=== PATIENT | male | born 2000 | race Caucasian/White ===

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

== ENCOUNTER 2020-07-15 09:17 | Emergency (ER) | payer MEDICAID ==
[2020-07-15 11:24] LABS: Bacteria,Urine 1+ /HPF (Negative); Bilirubin,Urine NEG (Negative); Blood,Urine NEG (Negative); Color,Urine Yellow (Yellow); Mucus,Urine FEW /HPF; Protein,Urine <15 mg/dL mg/dL (Negative); Urobilinogen,Urine < 2.0 mg/dL (<2.0)
--- NOTE | 2020-07-15 12:02 | Emergency Department Report ---
ED Male HPI - General Chief complaint: Urogenital-Male Stated complaint: GROIN PAIN Time Seen by Provider: 07/15/20 10:24 Source: patient Mode of arrival: Ambulatory Limitations: No Limitations - History of Present Illness Initial comments: Patient is a 20-year-old male presents emergency room with complaints of right- sided groin pain that began yesterday. He denies any fall or injury. He denies any heavy lifting. He denies stretching incorrectly or doing anything differently. He denies any dysuria, hematuria, urinary retention. He denies an y penile discharge, pain or swelling in the testicles, abdominal pain, nausea, vomiting, diarrhea, fever. He has a past medical history of ADHD. No allergies to medications. - Related Data Previous Rx's Medication Instructions Recorded Last Taken Type Ibuprofen [Motrin 800 MG tab] 800 mg PO Q8HR PRN #21 tablet 06/15/19 Unknown Rx Sulfamethoxazole/Trimethoprim 1 each PO BID 10 Days #20 tablet 06/15/19 Unknown Rx [Bactrim DS TAB] Ibuprofen [Motrin 400 MG tab] 400 mg PO Q8H PRN #14 tablet 06/29/19 Unknown Rx Doxycycline Hyclate [Doxycycline 100 mg PO BID 7 Days #14 tab 07/15/20 Unknown Rx Hyclate TAB] Ondansetron [Zofran Odt] 4 mg PO Q8HR PRN #10 tab.rapdis 07/15/20 Unknown Rx Allergies Allergy/AdvReac Type Severity Reaction Status Date / Time No Known Allergies Allergy Verified 07/15/20 09:18 ED Review of Systems ROS: Stated complaint: GROIN PAIN Other details as noted in HPI Comment: All other systems reviewed and negative ED Past Medical Hx - Past Medical History Hx Psychiatric Treatment: Yes (OCD,ADHD,MID) - Social History Smoking Status: Current Every Day Smoker Substance Use Type: None - Medications Home Medications: Home Medications Medication Instructions Recorded Confirmed Last Taken Type Ibuprofen [Motrin 800 MG tab] 800 mg PO Q8HR PRN #21 tablet 06/15/19 Unknown Rx Sulfamethoxazole/Trimethoprim 1 each PO BID 10 Days #20 tablet 06/15/19 Unknown Rx [Bactrim DS TAB] Ibuprofen [Motrin 400 MG tab] 400 mg PO Q8H PRN #14 tablet 06/29/19 Unknown Rx Doxycycline Hyclate [Doxycycline 100 mg PO BID 7 Days #14 tab 07/15/20 Unknown Rx Hyclate TAB] Ondansetron [Zofran Odt] 4 mg PO Q8HR PRN #10 tab.rapdis 07/15/20 Unknown Rx ED Physical Exam - General Limitations: No Limitations General appearance: alert, in no apparent distress - Head Head exam: Present: atraumatic, normocephalic - Eye Eye exam: Present: normal appearance - ENT ENT exam: Present: mucous membranes moist - Respiratory Respiratory exam: Present: normal lung sounds bilaterally. Absent: respiratory distress, wheezes, rales, rhonchi, stridor, chest wall tenderness, accessory muscle use, decreased breath sounds, prolonged expiratory - Cardiovascular Cardiovascular Exam: Present: regular rate, normal rhythm, normal heart sounds. Absent: systolic murmur, diastolic murmur, rubs, gallop - GI/Abdominal GI/Abdominal exam: Present: soft, normal bowel sounds. Absent: distended, tenderness, guarding, rebound, rigid - exam: Present: other (aviation electronic warfare operator: Winnie, tech, no ttp of the testicles bilaterally, no scrotal edema, no tenderness to palpation or edema of the epididymal appendages bilaterally, normal cremasteric reflex, no signficant inguinal hernia, no palpable mass, normal testicular lie) - Back Exam Back exam: Absent: CVA tenderness (R), CVA tenderness (L) - Neurological Exam Neurological exam: Present: alert, oriented X3 - Psychiatric Psychiatric exam: Present: normal affect, normal mood - Skin Skin exam: Present: warm, dry, intact ED Course Vital Signs 07/15/20 07/15/20 09:21 13:36 Temperature 98.0 F 97.5 F L Pulse Rate 63 79 Respiratory 18 19 Rate Blood Pressure 104/68 Blood Pressure 128/64 [Left] O2 Sat by Pulse 98 100 Oximetry ED Medical Decision Making - Lab Data Lab Results 07/15/20 Range/Units Unknown Urine Color Yellow (Yellow) Urine Turbidity Hazy (Clear) Urine pH 8.0 H (5.0-7.0) Ur Specific [place] 1.015 (1.003-1.030) Urine Protein <15 mg/dl (Negative) mg/dL Urine Glucose (UA) Neg (Negative) mg/dL Urine Ketones Neg (Negative) mg/dL Urine Blood Neg (Negative) Urine Nitrite Neg (Negative) Urine Bilirubin Neg (Negative) Urine Urobilinogen < 2.0 (<2.0) mg/dL Ur Leukocyte Esterase Sm (Negative) Urine WBC (Auto) 22.0 H (0.0-6.0) /HPF Urine RBC (Auto) 4.0 (0.0-6.0) /HPF Urine Bacteria (Auto) 1+ (Negative) /HPF Urine Mucus Few /HPF - Radiology Data Radiology results: report reviewed Ordering Physician: ZEV PAGE Date of Service: 07/15/20 Procedure(s): US testicular doppler comp Accession Number(s): [id number] cc: ZEV PAGE TESTICULAR ULTRASOUND HISTORY: Right inguinal pain. FINDINGS: Right testicle measures 4.2 x 1.9 x 3 cm. Left testicle measures 4.1 x 1.9 x 2.6 cm. Both testicles demonstrate appropriate flow. Negative for testicular mass. Tiny hydroceles are present bilaterally. IMPRESSION: Tiny bilateral hydroceles. Signer Name: Terrance Borrero MD Signed: 07/15/2020 12:04 PM Workstation Name: [id number] Transcribed By: ES Dictated By: Terrance Borrero MD Electronically Authenticated By: Terrance Borrero MD Signed Date/Time: 07/15/20 120 DD/ 03 TD/TT: - Medical Decision Making Patient is a 20-year-old male presents emergency room with complaints of right- sided groin pain that began yesterday. He denies any fall or injury. He denies any heavy lifting. He denies stretching incorrectly or doing anything differently. He denies any dysuria, hematuria, urinary retention. He denies any penile discharge, pain or swelling in the testicles, abdominal pain, nausea, vomiting, diarrhea, fever. He has a past medical history of ADHD. No allergies to medications. vitals are normal. on exam: aviation electronic warfare operator: Winnie, tech, no ttp of the testicles bilaterally, no scrotal edema, no tenderness to palpation or edema of the epididymal appendages bilaterally, normal cremasteric reflex, no signficant inguinal hernia, no palpable mass, normal testicular lie, no abdominal tenderness on exam, no guarding, urine, no rigidity, normal bowel sounds. UA with small amount of white blood cells and small leukocyte esterase. US scrotal: Tiny bilateral hydroceles. Given that patient is a young male with groin pain and bacteria, likely this is an STD. G/C swab sent. Patient would like prophylactic treatment for G/C. Patient given ceftriaxone and azithromycin while in the ED. Patient had an episode of vomiting after he took the azithromycin on an empty stomach, otherwise patient has had no vomiting. Patient given prescription for doxycycline and Zofran. Advised patient to take medication with food. Advised patient Please follow-up with the clinic without department to have a full STD panel. Please have any partner tested and treated as well. 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 Avoid sexual intercourse. Return to emergency room for any new or worsening symptoms. - Differential Diagnosis STD, hernia, nodule, epididymitis, orchitis, inguinal sprain Critical care attestation.: If time is entered above; I have spent that time in minutes in the direct care of this critically ill patient, excluding procedure time. ED Disposition Clinical Impression: Bacteria in urine, Concern about STD in male without diagnosis Groin pain Qualifiers: Laterality: right Qualified Code(s): R10.31 - Right lower quadrant pain Hydrocele Qualifiers: Hydrocele type: unspecified Qualified Code(s): N43.3 - Hydrocele, unspecified Disposition: DC- TO HOME OR SELFCARE Is pt being admited?: No Does the pt Need Aspirin: No Condition: Stable Instructions: Hydrocele, Adult, Gonorrhea Test, Chlamydia Test Additional Instructions: Please follow-up with the clinic without department to have a full STD panel. Please have any partner tested and treated as well. 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 Avoid sexual intercourse. Return to emergency room for any new or worsening symptoms. Prescriptions: Doxycycline Hyclate [Doxycycline Hyclate TAB] 100 mg PO BID 7 Days #14 tab Ondansetron [Zofran Odt] 4 mg PO Q8HR PRN #10 tab.rapdis PRN Reason: Nausea And Vomiting Referrals: PRIMARY CARE, [Primary Care Provider] - 2-3 Days [facility] [Outside] - 2-3 Days Time of Disposition: 12:18 Print Language: HONDURAN
--- NOTE | 2020-07-15 12:09 | Ultrasound Report ---
TESTICULAR ULTRASOUND HISTORY: Right inguinal pain. FINDINGS: Right testicle measures 4.2 x 1.9 x 3 cm. Left testicle measures 4.1 x 1.9 x 2.6 cm. Both testicles d emonstrate appropriate flow. Negative for testicular mass. Tiny hydroceles are present bilaterally. IMPRESSION: Tiny bilateral hydroceles. Signer Name: Terrance Borrero MD Signed: 07/15/2020 12:04 PM Workstation Name: [id number]
[2020-07-15] MEDS ORDERED: AZITHROMYCIN 250 MG TAB PO ONE (12:17)
[2020-07-15] MEDS ORDERED: LIDOCAINE-MPF (1%) 10 MG/1 ML VIAL 5 ML INFILTRATI ONE (12:17)
[2020-07-15 13:38] VITALS: BP 128/64
== END 2020-07-15 13:37 | disposition home or self-care (01) ==
LOC: ED 09:17
DX: R82.71 Bacteriuria (principal); R10.31 Right lower quadrant pain; N43.3 Hydrocele, unspecified; Z71.1 Person with feared health complaint in whom no diagnosis is made; F90.9 Attention-deficit hyperactivity disorder, unspecified type; F17.200 Nicotine dependence, unspecified, uncomplicated; Z79.899 Other long term (current) drug therapy
CPT/HCPCS: 81001; 87086; 87591; 93975; 96372; 99284; J0696

== ENCOUNTER 2021-05-27 19:45 | Emergency (ER) | payer MEDICAID ==
[2021-05-27 19:55] VITALS: BP 111/66
[2021-05-27] MEDS ORDERED: SODIUM CHLORIDE 0.9% 1000 ML 1,000 ML IV ONE (21:43)
--- NOTE | 2021-05-27 21:52 | Emergency Department Report ---
ED General Adult HPI - General Chief complaint: Abdominal Pain Stated complaint: ABDOMINAL PAIN Time Seen by Provider: 05/27/21 21:31 Source: patient, EMS Mode of arrival: Stretcher Limitations: No Limitations - History of Present Illness Initial comments: 21-year-old male patient presents to the emergency department with complaints of abdominal pain, nausea, vomiting, and myalgias starting today. Pain is localized to the epigastric area. No known sick contacts. No current steroid or antibiotic use. No recent travel. Patient admits to drinking cognac prior to onset of his symptoms. No history of prior abdominal surgeries. Denies fever, chills, hematemesis, diarrhea, rectal bleeding, chest pain, shortness of breath, syncope. Denies all other complaints at this time. Severity scale (0 -10): 8 - Related Data Previous Rx's Medication Instructions Recorded Last Taken Type Ibuprofen [Motrin 800 MG tab] 800 mg PO Q8HR PRN #21 tablet 06/15/19 Unknown Rx Sulfamethoxazole/Trimethoprim 1 each PO BID 10 Days #20 tablet 06/15/19 Unknown Rx [Bactrim DS TAB] Ibuprofen [Motrin 400 MG tab] 400 mg PO Q8H PRN #14 tablet 06/29/19 Unknown Rx Doxycycline Hyclate [Doxycycline 100 mg PO BID 7 Days #14 tab 07/15/20 Unknown Rx Hyclate TAB] Ondansetron [Zofran Odt] 4 mg PO Q8HR PRN #10 tab.rapdis 07/15/20 Unknown Rx Allergies Allergy/AdvReac Type Severity Reaction Status Date / Time No Known Allergies Allergy Verified 07/15/20 09:18 ED Review of Systems ROS: Stated complaint: ABDOMINAL PAIN Other details as noted in HPI Other: GENERAL: Negative for fever, chills, weight change, anorexia, fatigue. ENT: Negative for ear pain, difficulty hearing, sore throat, nasal congestion, epistaxis. CARDIOVASCULAR: Negative for chest pain, palpitations, lower extremity swelling. PULMONARY: Negative for cough, dyspnea, wheezing, orthopnea, cyanosis. GASTROINTESTINAL: Positive for abdominal pain, nausea, vomiting MUSCULOSKELETAL: Positive for myalgias NEUROLOGICAL: Negative for headache, seizure, syncope, paresthesias, weakness. INTEGUMENTARY: Negative for erythema, rash, diaphoresis, laceration, ecchymosis. HEMATOLOGICAL: Negative for hemoptysis, hematemesis, hematochezia, hematuria. PSYCHIATRIC: Negative for hallucinations, suicidal ideation, homicidal ideation, anxiety, depression. ED Past Medical Hx - Past Medical History Previous Medical History?: No Hx Psychiatric Treatment: Yes (OCD,ADHD,MID) - Surgical History Past Surgical History?: No - Social History Smoking Status: Current Every Day Smoker Substance Use Type: None - Medications Home Medications: Home Medications Medication Instructions Recorded Confirmed Last Taken Type Ibuprofen [Motrin 800 MG tab] 800 mg PO Q8HR PRN #21 tablet 06/15/19 Unknown Rx Sulfamethoxazole/Trimethoprim 1 each PO BID 10 Days #20 tablet 06/15/19 Unknown Rx [Bactrim DS TAB] Ibuprofen [Motrin 400 MG tab] 400 mg PO Q8H PRN #14 tablet 06/29/19 Unknown Rx Doxycycline Hyclate [Doxycycline 100 mg PO BID 7 Days #14 tab 07/15/20 Unknown Rx Hyclate TAB] Ondansetron [Zofran Odt] 4 mg PO Q8HR PRN #10 tab.rapdis 07/15/20 Unknown Rx ED Physical Exam - General Limitations: No Limitations - Other Other exam information: General: Awake and alert. No acute distress. Head: Atraumatic, normocephalic. Eyes: EOMI. Pupils are equal and round. Normal sclera and conjunctiva. ENT: Oral mucosa is moist. Normal pharyngeal exam. Neck: Supple. No lymphadenopathy. Pulmonary: No respiratory distress. Clear to auscultation bilaterally. Cardiac: Regular rate and rhythm. Pulses are palpable and equal bilaterally. No lower extremity cyanosis or edema. Skin: Warm and dry. No rashes. Abdomen: Soft, non-protuberant. Epigastric tenderness without guarding, rigidity, or rebound. Bowel sounds are normal. No organomegaly or masses noted. Back: Normal alignment. No CVA tenderness. Extremities: Symmetrical. Full range of motion intact. Neurological: Alert and oriented, appropriately interactive, no focal deficits. Psych: Cooperative. Appropriate mood and affect. Speech is evenly metered. Thoughts are logically construed. ED Course Vital Signs 05/27/21 19:52 Temperature 99.8 F H Pulse Rate 85 Respiratory 16 Rate Blood Pressure 111/66 [Right] O2 Sat by Pulse 100 Oximetry ED Medical Decision Making - Medical Decision Making Differential diagnosis including but not limited to: pancreatitis, hepatobiliary disease, dehydration, electrolyte normality, viral illness Patient eloped from the emergency department prior to completion of diagnostic evaluation. Critical care attestation.: If time is entered above; I have spent that time in minutes in the direct care of this critically ill patient, excluding procedure time. ED Disposition Clinical Impression: Eloped from emergency department Disposition: 07 LEFT AWOL/ELOPED Is pt being admited?: No Condition: Undetermined Time of Disposition: 21:54
== END 2021-05-27 21:47 | disposition left against medical advice (07) ==
LOC: ED 19:45
DX: R10.13 Epigastric pain (principal); R11.2 Nausea with vomiting, unspecified; F42.9 Obsessive-compulsive disorder, unspecified; F90.9 Attention-deficit hyperactivity disorder, unspecified type; F17.200 Nicotine dependence, unspecified, uncomplicated
CPT/HCPCS: 99282